=== PATIENT | male | born 1975 | race Caucasian/White ===

== ENCOUNTER 2018-04-03 07:48 | Day surgery (SDC) | payer BC ==
[~2018-04-03] VITALS: Ht 188 cm; Wt 129.0 kg
[~2018-04-03 07:48] MED LIST: ALBU18HF PO; AMLO5TAB2 PO; ASPI-496 PO; BUPIVACAINE/PF 0.25% ONE; EPINEPHRINE 1 MG/ML, 1ML ONE; GLIP10TA13 PO; LIDOCAINE/PF 0.5% ,50ML ONE; METF10002 PO; SYMBICORT PO; VALS1TAB30 PO; XOPENEX; glipizide PO; metformin PO; symbicort inhaler
[2018-04-03] MEDS ORDERED: ONDANSETRON ODT 8 MG PO ONE ×2 (08:30→09:30)
[2018-04-03] MEDS ORDERED: GABAPENTIN 300 MG CAPSULE PO ONE ×2 (08:30→09:30)
[2018-04-03] MEDS ORDERED: SCOPOLAMINE PATCH, 1.5MG PATCH.TD72 TD ONE ×2 (08:30→09:30)
[2018-04-03] MEDS ORDERED: FAMOTIDINE 20 MG TABLET PO ONE ×2 (08:30→09:30)
[2018-04-03] MEDS ORDERED: OXYcodone IR 5MG TABLET PO ONE ×2 (08:30→09:30)
[2018-04-03] MEDS ORDERED: ACETAMINOPHEN 500 MG TABLET PO ONE ×2 (08:30→09:30)
[2018-04-03] MEDS ORDERED: MIDAZOLAM 1 MG/ML, 2ML ONE (08:34)
[2018-04-03] MEDS ORDERED: FENTANYL PF 100 MCG/2ML ONE (08:34)
[2018-04-03 08:38] VITALS: BP 146/88
[2018-04-03] MEDS ORDERED: LACTATED RINGERS 1,000 ML IV SCH (09:00)
[2018-04-03 09:20] LABS: ALANINE AMINOTRANSFERASE 100 U/L (12-78); ALBUMIN 3.8 g/dL (3.4-5.0); ANION GAP 8 mmol/L (5-15); CALCIUM 8.8 mg/dL (8.5-10.1); CHLORIDE 105 mmol/L (98-107); CREATININE 0.91 mg/dL (0.7-1.3)
[2018-04-03] MEDS ORDERED: CEFAZOLIN 1,000 MG ONE (09:20)
[2018-04-03] MEDS ORDERED: PROPOFOL 10 MG/ML, 20ML ONE (09:20)
[2018-04-03] MEDS ORDERED: SUCCINYLCHOLINE 20 MG/ML, 10ML ONE (09:20)
[2018-04-03] MEDS ORDERED: ROCURONIUM 10 MG/ML,10ML ONE (09:20)
[2018-04-03] MEDS ORDERED: KETOROLAC 30 MG/1 ML ONE (09:20)
[2018-04-03] MEDS ORDERED: ONDANSETRON 2MG/ML, 2ML ONE (09:20)
[2018-04-03] MEDS ORDERED: DEXAMETHASONE 4 MG/ML, 1ML ONE (09:20)
[2018-04-03 09:22] LABS: ALKALINE PHOSPHATASE 57 U/L (45-117); BILIRUBIN,TOTAL 1.9 mg/dL (0.2-1.0); TOTAL PROTEIN 7.3 g/dL (6.4-8.2)
[2018-04-03] MEDS ORDERED: EPHEDRINE 50 MG/ML, 1ML IVPush PRN (10:00)
[2018-04-03] MEDS ORDERED: LABETALOL 5MG/ML, 20ML IV PRN (10:00)
[2018-04-03] MEDS ORDERED: FENTANYL PF 100 MCG/2ML IV PRN (10:00)
[2018-04-03] MEDS ORDERED: HYDROmorphone 1 MG/ML, 1ML IV PRN (10:00)
[2018-04-03] MEDS ORDERED: PROMETHAZINE 25 MG/ML, 1ML IV PRN (10:00)
[2018-04-03] MEDS ORDERED: MEPERIDINE/PF 25MG/0.5ML IVPush PRN (10:00)
[2018-04-03] MEDS ORDERED: OXYcodone 5 MG/5 ML ORAL.SOL UDC PO PRN (10:00)
[2018-04-03] MEDS ORDERED: ONDANSETRON ODT 8 MG PO PRN (10:00)
[2018-04-03] MEDS ORDERED: MIDAZOLAM 1 MG/ML, 2ML IV PRN (10:00)
[2018-04-03] MEDS ORDERED: HYDROcodone/APAP 7.5-325MG/15ML UDC PO PRN (10:00)
[2018-04-03] MEDS ORDERED: hydrALAzine 20 MG/ML, 1ML IV PRN (10:00)
[2018-04-03] MEDS ORDERED: ALBUTEROL SULFATE 2.5 MG/3 ML NPPB PRN (10:00)
== END 2018-04-03 13:40 ==
LOC: OUT 07:48
PROVIDERS: ATTEND Orthopaedic Surgery
DX: S43.431A Superior glenoid labrum lesion of right shoulder, initial encounter (principal); S46.111A Strain of muscle, fascia and tendon of long head of biceps, right arm, initial encounter; M75.111 Incomplete rotator cuff tear or rupture of right shoulder, not specified as traumatic; M25.511 Pain in right shoulder; M75.41 Impingement syndrome of right shoulder; J45.909 Unspecified asthma, uncomplicated; E11.9 Type 2 diabetes mellitus without complications; I10 Essential (primary) hypertension; Z79.82 Long term (current) use of aspirin; X58.XXXA Exposure to other specified factors, initial encounter; Y93.89 Activity, other specified; Y92.89 Other specified places as the place of occurrence of the external cause; Y99.8 Other external cause status
CPT/HCPCS: 29822; 29826; 29827; 29828; 36415; 64415; 80053; 82962; 93005; C1713; J0171; J0330; J0690; J1100; J1885; J2250; J2405; J2704; J3010; J3490; Q0162; J2001